=== PATIENT | female | born 1970 | race Caucasian/White ===

== ENCOUNTER → 2024-01-05 12:56 | Outpatient (REF) | payer BC, SELFPAY | LOC: RAD 12:56 | PROVIDERS: ATTENDING PHYSICIAN Internal Medicine | DX: E04.1 Nontoxic single thyroid nodule (principal) | CPT/HCPCS: 76536 ==

== ENCOUNTER → 2025-05-09 15:35 | Outpatient (REF) | payer OTHER, SELFPAY | LOC: RAD 15:35 | PROVIDERS: ATTENDING PHYSICIAN Nurse Practitioner Adult Health | DX: M25.572 Pain in left ankle and joints of left foot (principal); M79.675 Pain in left toe(s) | CPT/HCPCS: 73610; 73630 ==

== ENCOUNTER 2025-09-05 13:20 | Emergency (ER) | payer OTHER, SELFPAY ==
[2025-09-05 13:23] VITALS: BP 147/102
[2025-09-05 13:47] LABS: Hematocrit 42.2 % (37.0-47.0); Hemoglobin 14.6 g/dL (12.0-16.0); Mean Corp Hgb Conc. 34.6 g/dL (33.0-37.0); Mean Corpuscular Volume 101.7 fL (81.0-99.0); Nucleated Red Blood Cells % 0 %; Platelet Count 105 10^3/uL (130-400); Red Cell Dist. Width 12.2 % (11.5-14.5)
[2025-09-05 14:23] LABS: ALT (SGPT) 130 U/L (0-35); AST (SGOT) 306 U/L (14-36); Albumin 5.5 g/dl (3.5-5.0); Alkaline Phosphatase 86 U/L (38-126); Blood Urea Nitrogen 10 mg/dl (7-17); Calcium 9.6 mg/dl (8.4-10.2); Carbon Dioxide 19 mmol/L (22-30); Chloride 98 mmol/L (98-107); Glucose 152 mg/dl (70-99); Potassium 4.1 mmol/L (3.5-5.1); Sodium 138 mmol/L (135-145); Total Protein 8.1 g/dl (6.3-8.2); eGFR > 60.00
== END 2025-09-05 15:13 | disposition left against medical advice (07) ==
LOC: EMR 13:20
PROVIDERS: EMERGENCY PHYSICIAN Student in an Organized Health Care Education/Training Program
DX: R53.1 Weakness (principal); Z53.21 Procedure and treatment not carried out due to patient leaving prior to being seen by health care provider
CPT/HCPCS: 80053; 85025; 93005